=== PATIENT | female | born 1970 | race Asian ===

== ENCOUNTER 2025-06-02 08:16 | Outpatient (CLI) | payer OTHER | END 2025-06-02 08:17 | disposition home or self-care (01) | LOC: CSHMAMMO 08:16 | PROVIDERS: ATTEND Internal Medicine Cardiovascular Disease | DX: Z12.31 Encounter for screening mammogram for malignant neoplasm of breast (principal) | CPT/HCPCS: 77063; 77067 ==

== ENCOUNTER 2025-06-16 08:00 | Outpatient (CLI) | payer OTHER | END 2025-06-16 08:01 | disposition home or self-care (01) | LOC: CSHULT 08:00 | PROVIDERS: ATTEND Internal Medicine Cardiovascular Disease | DX: Z86.19 Personal history of other infectious and parasitic diseases (principal) | CPT/HCPCS: 76700 ==